=== PATIENT | male | born 1950 | race Caucasian/White ===

== ENCOUNTER 2017-04-14 13:16 | Emergency (ER) | payer OTHER ==
[~2017-04-14] VITALS: Ht 167.6 cm; Wt 75.6 kg
[2017-04-14 13:55] LABS: URINE BILIRUBIN - DIPSTICK NEGATIVE (NEGATIVE); URINE BLOOD DIPSTICK LARGE (NEGATIVE); URINE COLOR YELLOW; URINE GLUCOSE - DIPSTICK NEGATIVE (NEGATIVE); URINE KETONE TRACE mg/dL (NEGATIVE); URINE LEUK ESTERASE NEGATIVE (NEGATIVE); URINE NITRITE - DIPSTICK NEGATIVE (Negative); URINE PROTEIN - DIPSTICK NEGATIVE (NEG-TRACE); URINE SPECIFIC GRAVITY >=1.030; URINE UROBILINOGEN - DIPSTICK 0.2 E.U./dL (0.2)
[2017-04-14 13:58] LABS: URINE CLARITY HAZY
[2017-04-14 14:03] LABS: URINE RBC 25-50 RBC/hpf (0-5)
[2017-04-14 14:04] LABS: URINE HYALINE CAST FEW lpf (NONE-RARE); URINE WBC 0-2 WBC/hpf (0-5)
[2017-04-14 14:29] LABS: HEMATOCRIT 41.7 % (39.0-50.0); HEMOGLOBIN 14.3 g/dl (14.0-18.0); IMMATURE GRANULOCYTES 0.2 % (0.0-1.0); MEAN CELL VOLUME 89.5 fL CALC (80.0-100.0); MEAN CORPUSCULAR HGB 30.7 pG CALC (26.0-32.0); MEAN CORPUSCULAR HGB CONC 34.3 g/L CALC (32.0-36.0); NEUT# 6.62 thou/uL (1.82-7.42); RED BLOOD COUNT 4.66 mill/uL (4.70-6.10); RED CELL DISTRI WIDTH 13.1 % (11.5-15.5)
[2017-04-14 14:52] LABS: ALBUMIN 4.4 g/dL (3.2-5.0); ALKALINE PHOSPHATASE 84 u/l (38-126); AMYLASE 73 u/l (30-110); ANION GAP 16 (6-22 (CALC)); BILIRUBIN, TOTAL 0.6 mg/dL (0.0-1.4); BUN 17 mg/dL (8-23); BUN/CREATININE RATIO 16 (12-20 (CALC)); CALCIUM 9.8 mg/dL (8.4-10.2); CARBON DIOXIDE 24 mmol/l (22-30); CHLORIDE 107 mmol/l (95-108); GFR > 60 ML/MIN (>=60 (CALC)); GFR FOR AFR.AMER. > 60 ML/MIN (>=60 (CALC)); GLUCOSE 102 mg/dL (82-115); LIPASE 54 u/l (23-300); POTASSIUM 3.8 mmol/l (3.5-5.1); SGOT/AST 24 u/l (19-48); SGPT/ALT 21 u/l (11-66); SODIUM 143 mmol/l (137-146); TOTAL PROTEIN 7.1 g/dL (6.3-8.2)
[2017-04-14 15:03] LABS: MYOGLOBIN 36 ng/mL (0 - 121)
[2017-04-14] MEDS ORDERED: TAMSULOSIN0.4 MG PO (17:38)
[2017-04-14] MEDS ORDERED: CIPROFLOXACIN250 MG PO (17:38)
[2017-04-14] MEDS ORDERED: TRAMADOL HYDROC50 MG PO (17:38)
[2017-04-14 17:42] VITALS: BP 168/92
== END 2017-04-14 17:58 | disposition home or self-care (01) | DRG 392 ==
LOC: ED 13:16
PROVIDERS: Emergency Medicine
DX: R10.32 Left lower quadrant pain (principal); R11.0 Nausea; R31.9 Hematuria, unspecified

== ENCOUNTER 2017-04-15 07:06 | Emergency (ER) | payer OTHER ==
[~2017-04-15] VITALS: Ht 167.6 cm; Wt 85.0 kg
[~2017-04-15 07:06] MED LIST: CIPROFLOXACIN250 MG PO; TAMSULOSIN0.4 MG PO; TRAMADOL HYDROC50 MG PO
[2017-04-15 07:08] VITALS: BP 143/68
== END 2017-04-15 12:58 | disposition home or self-care (01) | DRG 694 ==
LOC: ED 07:06
DX: N20.1 Calculus of ureter (principal); R10.9 Unspecified abdominal pain

== ENCOUNTER 2018-05-09 17:17 | Emergency (ER) | payer OTHER ==
[~2018-05-09] VITALS: Ht 167.6 cm; Wt 75.0 kg
[2018-05-09] MEDS ORDERED: ASPIRIN81 MG PO (18:14)
[2018-05-09 18:35] LABS: HEMATOCRIT 41.5 % (39.0-50.0); HEMOGLOBIN 14.4 g/dl (14.0-18.0); IMMATURE GRANULOCYTES 0.2 % (0.0-5.0); MEAN CELL VOLUME 89.8 fL CALC (80.0-100.0); MEAN CORPUSCULAR HGB 31.2 pG CALC (26.0-32.0); MEAN CORPUSCULAR HGB CONC 34.7 g/L CALC (32.0-36.0); NEUT# 3.23 thou/uL (1.82-7.42); RED BLOOD COUNT 4.62 mill/uL (4.70-6.10); RED CELL DISTRI WIDTH 13.3 % (11.5-15.5)
[2018-05-09 18:49] LABS: ALKALINE PHOSPHATASE 64 u/l (38-126); ANION GAP 12 (6-22 (CALC)); BILIRUBIN, TOTAL 0.7 mg/dL (0.0-1.4); BUN 16 mg/dL (8-23); BUN/CREATININE RATIO 21 (12-20 (CALC)); CARBON DIOXIDE 25 mmol/l (22-30); CHLORIDE 109 mmol/l (95-108); CREATININE 0.8 mg/dL (0.7-1.3); GFR > 60 ML/MIN (>=60 (CALC)); GFR FOR AFR.AMER. > 60 ML/MIN (>=60 (CALC)); LIPASE 50 u/l (23-300); POTASSIUM 4.3 mmol/l (3.5-5.1); SGOT/AST 24 u/l (19-48); SODIUM 141 mmol/l (137-146); TOTAL PROTEIN 6.9 g/dL (6.3-8.2)
[2018-05-09 19:28] LABS: URINE BILIRUBIN - DIPSTICK NEGATIVE (NEGATIVE); URINE BLOOD DIPSTICK MODERATE (NEGATIVE); URINE COLOR YELLOW; URINE GLUCOSE - DIPSTICK NEGATIVE (NEGATIVE); URINE KETONE NEGATIVE (NEGATIVE); URINE LEUK ESTERASE NEGATIVE (NEGATIVE); URINE NITRITE - DIPSTICK NEGATIVE (Negative); URINE PH 5.5 (4.5-8.0); URINE PROTEIN - DIPSTICK NEGATIVE (NEG-TRACE); URINE SPECIFIC GRAVITY >=1.030; URINE UROBILINOGEN - DIPSTICK 0.2 E.U./dL (0.2)
[2018-05-09 19:37] LABS: URINE RBC 0-2 RBC/hpf (0-5)
[2018-05-09] MEDS ORDERED: CIPROFLOXACN500 MG PO (20:37)
[2018-05-09] MEDS ORDERED: TAMSULOSIN0.4 MG PO (20:37)
[2018-05-09] MEDS ORDERED: MIRALAX3350 N1 PO (20:46)
[2018-05-09 21:21] VITALS: BP 175/79
== END 2018-05-09 21:21 | disposition home or self-care (01) | DRG 690 ==
LOC: ED 17:17
PROVIDERS: Family Medicine
DX: N30.90 Cystitis, unspecified without hematuria (principal)